=== PATIENT | female | born 1945 | race Caucasian/White ===

== ENCOUNTER 2016-12-11 16:28 | Emergency (ER) | payer MEDICARE, OTHER ==
[2016-12-11] MEDS ORDERED: OMEPRAZOLE10 MG PO (16:56)
[2016-12-11] MEDS ORDERED: VITAMIN D2000 UNI2 PO (16:57)
[2016-12-11] MEDS ORDERED: EFFEXOR XR75 MG PO (16:58)
[2016-12-11] MEDS ORDERED: VENLAFAXINE HCL75 M1 PO (16:58)
[2016-12-11] MEDS ORDERED: ATENOLOL50 MG PO (16:59)
[2016-12-11] MEDS ORDERED: MAXZIDE-2537.5 MG/TA PO (16:59)
[2016-12-11] MEDS ORDERED: NAPROSYN250 MG PO (17:00)
[2016-12-11] MEDS ORDERED: COUMADIN5 MG PO (17:49)
[2016-12-11 17:55] LABS: HEMOGLOBIN 13.9 g/dl (12.0-16.0); IMMATURE GRANULOCYTES 0.3 % (0.0-1.0); MEAN CELL VOLUME 90.5 fL CALC (80.0-100.0); MEAN CORPUSCULAR HGB CONC 33.1 g/L CALC (32.0-36.0); NEUT# 5.76 thou/uL (2.00-7.15); RED BLOOD COUNT 4.64 mill/uL (4.20-5.60); RED CELL DISTRI WIDTH 13.9 % (11.5-15.5)
[2016-12-11 18:03] LABS: INTERNATIONAL NORMALIZED RATIO 2.3 RATIO (0.7-1.3); PROTHROMBIN TIME 26.4 SECONDS (9.0-12.5)
[2016-12-11 19:30] VITALS: BP 138/77
== END 2016-12-11 19:32 | disposition left against medical advice (07) ==
LOC: ED 16:28
PROVIDERS: Emergency Medicine
DX: S00.03XA Contusion of scalp, initial encounter (principal); W01.0XXA Fall on same level from slipping, tripping and stumbling without subsequent striking against object, initial encounter; Y93.9 Activity, unspecified; Y92.239 Unspecified place in hospital as the place of occurrence of the external cause; R42 Dizziness and giddiness; I10 Essential (primary) hypertension; Z86.711 Personal history of pulmonary embolism; Z79.01 Long term (current) use of anticoagulants; M54.2 Cervicalgia; Z91.19 Patient's noncompliance with other medical treatment and regimen